=== PATIENT | female | born 1940 | race Caucasian/White ===

== ENCOUNTER 2025-01-11 14:08 | Inpatient (IN) | payer MEDICARE, SELFPAY ==
[2025-01-11 14:09] VITALS: BMI 25.4
[2025-01-11 14:27] VITALS: BP 145/87; PULSE 99; RESP 19; TEMP 36.9; O2SAT 99
--- NOTE | 2025-01-11 14:35 | PD.EDRME ---
Rapid Medical Screening Exam E Arrival date/time: 01/11/25 14:08 84-year-old female presents to the emergency department today patient on the phone with her physician who I spoke with she reports that the patient's urine culture grew Pseudomonas as well as Klebsiella as the patient has a pseudomonal infection she believes patient is to have IV antibiotics. Chief Complaint: Urogenital-Female Vital signs: Vital Signs Temperature 98.4 F 01/11/25 14:27 Pulse Rate 99 01/11/25 14:27 Respiratory Rate 19 01/11/25 14:27 Blood Pressure 145/87 H 01/11/25 14:27 Pulse Oximetry (%) 99 01/11/25 14:27 Oxygen Delivery Method Room Air 01/11/25 14:27
[2025-01-11 15:25] LABS: Basophils # (Auto) 0.0 Thou/mm3 (0.0-0.2); Basophils % (Auto) 1 % (0-2.5); Eosinophils # (Auto) 0.3 Thou/mm3 (0.0-0.5); Eosinophils % (Auto) 4 % (0-10); Hematocrit 41.1 % (36.0-46.0); Hemoglobin 13.5 g/dL (12.0-16.0); Immature Granulocytes Auto 0.01 Thou/mm3 (0.00-0.00); Lymphocytes # (Auto) 1.7 Thou/mm3 (1.0-4.8); Lymphocytes % (Auto) 25 % (10-50); Mean Corpuscular HGB Conc 32.8 g/dl (31.0-37.0); Mean Corpuscular Hemoglobin 27.6 pg (25.0-35.0); Mean Corpuscular Volume 84 fL (80-100); Monocytes # (Auto) 0.7 Thou/mm3 (0.0-0.8); Monocytes % (Auto) 10 % (0-12); Neutrophils # (Auto) 4.0 Thou/mm3 (1.8-7.7); Neutrophils % (Auto) 60 % (37-80); Nucleated Red Blood Cell # 0.00 Thou/mm3 (0.00-0.00); Nucleated Red Blood Cell % 0 /100 WBC (0); Platelet Count 239 Thou/mm3 (140-440); RDW Standard Deviation 41.2 fL (36.4-46.3); Red Blood Count 4.90 Miln/mm3 (4.00-5.20); White Blood Count 6.6 Thou/mm3 (3.6-11.0)
[2025-01-11 15:31] LABS: Collection Type, Urine Clean Catch; RBC,Urine 0 /hpf (0-3)
[2025-01-11 15:46] LABS: Alanine Aminotransferase 11 U/L (10-49); Albumin, Serum 4.4 gm/dL (3.4-4.8); Albumin/Globulin Ratio 1.9 (1.2-2.2); Alkaline Phosphatase 55 U/L (46-116); Anion Gap 12 (7-16); Aspartate Amino Transferase 17 U/L (0-34); BUN/Creatinine Ratio 13 Ratio (12-20); Bilirubin,Total 0.4 mg/dL (0.3-1.2); Blood Urea Nitrogen 14 mg/dL (9-23); Calcium 9.5 mg/dL (8.3-10.6); Calcium (Corrected) 9.5 mg/dL (8.5-10.1); Carbon Dioxide 24.2 mMol/L (20.0-31.0); Chloride 99 mMol/L (98-107); Creatinine (Component) 1.1 mg/dL (0.6-1.3); Estimated Creatinine Clearance 38.6 mL/min (>60); Globulin 2.3 gm/dL (2.3-3.5); Glucose 152 mg/dL (74-106); Osmolality,Calculated 273 (275-295); Potassium 4.0 mMol/L (3.4-5.1); Sodium 135 mMol/L (136-145); Total Protein 6.7 gm/dL (5.7-8.2); eGFR 50 See Note
[2025-01-11 15:54] LABS: Bilirubin,Urine Negative (Negative); Blood,Urine Negative (Negative); Clarity,Urine Turbid (Clear/Hazy); Color,Urine Yellow (Lt Yel-Yel); Glucose, Urine Negative (Negative); Ketones,Urine Negative (Negative); Leukocyte Esterase,Urine Positive (Negative); Nitrite,Urine Positive (Negative); PH,Urine 6.0 (5.0-7.0); Protein,Urine Negative (Neg - Trace); Specific Gravity,Urine 1.016 (1.001-1.035); Squamous Epithelial Cell,Urine < 1 /hpf (0-5); Urobilinogen,Urine Negative mg/dL (0.0-1.0); WBC,Urine 45 /hpf (0-5)
[2025-01-11 15:55] LABS: Culture Indicated,Urine Yes
[2025-01-11 18:15] VITALS: BP 156/87; PULSE 87; RESP 18; TEMP 37.1; O2SAT 99
--- NOTE | 2025-01-11 18:31 | EDNOTE_ITS ---
ED Female Urogenital E/[facility] General Chief complaint: Urogenital-Female Stated complaint: NEED SHOT FOR UTI Time Seen by Provider: 01/11/25 17:17 Arrival date/time: 01/11/25 14:08 E / HPI RME / [facility] Narrative: 84-year-old female presents to the emergency department today patient on the phone with her physician who I spoke with she reports that the patient's urine culture grew Pseudomonas as well as Klebsiella as the patient has a pseudomonal infection she believes patient is to have IV antibiotics. Patient has been having urinary tract infection for more than 3 weeks, already completed 2 rounds of p.o. antibiotic. Last Monday, patient had another urinalysis and still showing UTI. Patient did not bring his culture and sensitivity results. Currently patient is still having urinary frequency and dysuria. No fever no vomiting noted. Related Data Allergies Allergy/AdvReac Type Severity Reaction Status Date / Time Sulfa (Sulfonamide Allergy Verified 01/11/25 14:09 Antibiotics) Review of Systems Review of Systems Narrative Review of Systems: Review of system reviewed and within normal limits except mentioned in HPI ED Exam Narrative Physical exam: VITAL SIGNS: Reviewed. GENERAL APPEARANCE: Alert and interactive, follows commands, no acute distress, HEAD AND FACE: Non-traumatic. ENT: PERRL, pink conjunctivitis, eyelid no trauma, Mucous membrane moist. NECK: Supple, nontender, no nuchal rigidity. CHEST: No tenderness, no crepitus, no paradoxical movement, no retractions. LUNGS: Clear, well ventilated, symmetric, no rales, no wheezing, no ronchi, no stridor, good breath sounds bilaterally. HEART: Regular rate, regular rhythm, no murmur, no gallops. ABDOMEN: Soft, positive bowel sounds, nondistended, no guarding, nontender, no rebound, no masses, RECTAL: Deferred. GENITAL: Deferred. NEUROLOGICAL: Gross motor function intact sensory function intact, Appropriate for age. MUSCULOSKELETAL: low back nontender, full range of motion. EXTREMITIES: Nontender, full range of motion. SKIN: Color pink, dry, no rash, no lacerations, no abrasions, no contusions. LYMPHATICS: Deferred. Course Quality Measures none Orders Category Date Time Status COVID-19 Screening Questionnaire NOW Care 01/11/25 19:56 Active Decision to Admit X1 Care 01/11/25 19:56 Active Blood Culture (Lab) Stat Lab 01/11/25 15:02 Received CBC Stat Lab 01/11/25 15:02 Completed Comprehensive Metabolic Panel Stat Lab 01/11/25 15:02 Completed Lactate (Lactic Acid) Stat Lab 01/11/25 18:41 Completed UA, C/S IF [Urinalysis, C/S if Indicated] Stat Lab 01/11/25 15:18 Completed Urine Culture Stat Lab 01/11/25 15:18 Received Meropenem Inj [Merrem Inj] 1,000 mg Med 01/11/25 18:30 Discontinued SODIUM CHLORIDE 0.9% (Popper) [Ns 0.9% (P)] 50 ml IV X1 Sodium Chloride 0.9% 1000 ml [Ns] 1,000 ml Med 01/11/25 18:30 Discontinued IV 999 mls/hr Vital Signs Vital signs: Vital Signs Temperature 98.4 F 01/11/25 14:27 Pulse Rate 99 01/11/25 14:27 Respiratory Rate 19 01/11/25 14:27 Blood Pressure 145/87 H 01/11/25 14:27 Pulse Oximetry (%) 99 01/11/25 14:27 Oxygen Delivery Method Room Air 01/11/25 14:27 Urogenital - Female MDM Narrative MDM Narrative:: 84-year-old female presents to the emergency department today patient on the phone with her physician who I spoke with she reports that the patient's urine culture grew Pseudomonas as well as Klebsiella as the patient has a pseudomonal infection she believes patient is to have IV antibiotics. Patient has been having urinary tract infection for more than 3 weeks, already completed 2 rounds of p.o. antibiotic. Last Monday, patient had another urinalysis and still showing UTI. Patient did not bring his culture and sensitivity results. Currently patient is still having urinary frequency and dysuria. No fever no vomiting noted. Patient's laboratory workup was significant for UTI no leukocytosis noted lactic acid is normal patient is to be admitted for IV antibiotic treatment since no p.o. antibiotic is susceptible to the patient's current UTI. Patient already finished 2 rounds of unrecalled p.o. antibiotic. Patient data External records reviewed:: None Clinical information provided by:: patient Social determinants that could affect healthcare access:: none Patient has the following chronic illnesses:: None How is presenting disease/condition affected by chronic disease/condition?: no chronic disease Evaluation data The following diagnostics were reviewed and interpreted by me:: lab results Lab and/or radiology exams considered but not ordered:: None Interpretation Summary: None Medications / Prescriptions Medications or Prescriptions considered but not ordered:: None Medication administrations:: Medication Administration History Discontinued Medications Meropenem 1,000 mg/ Sodium (Chloride) 50 mls @ 100 mls/hr IV X1 ONE Stop: 01/11/25 18:31 Last Infusion: 01/11/25 20:22 Dose: Infused Documented By: Admin: 01/11/25 19:52 Dose: 100 mls/hr Documented By: LAURA Sodium Chloride (Ns) 1,000 mls @ 999 mls/hr IV .Q1H1M ONE Stop: 01/11/25 19:30 Last Admin: 01/11/25 19:52 Dose: 999 mls/hr Documented By: LAURA IV fluids, meropenem Consultations Consultation(s) initiated? (list below): No Diagnosis Urogenital Female Differential Diagnosis: urinary tract infection and cystitis Most likely diagnosis given after review of the tests above:: UTI, resistant to p.o. antibiotics Admission Indicated Admission indicated?: indicated Admission Request Was there a request for admission?: Yes Admission Attestation Admission request attestation: Discussed case with [Dr. Sage] from Hospitalist service regarding admission. Discussed patients ED course, exam findings, labs, and radiology results. The Hospitalist [agrees to accept the patient for admission. Disposition Plan Disposition Plan: Admit Discharge Plan Plan Patient Disposition: Admit Acute Care w/in Hospital Prescriptions/Referrals Referrals: No Primary/Family,Physician [Primary Care Provider] - In 1 week Problem List Clinical Impression: Urinary tract infection Patient/Caregiver Discharge Instructions Print Language: Kazakh Stand Alone Forms: Jeanne Award Info., Patient Portal Info Letter
[2025-01-11 19:10] LABS: Lactate (Lactic Acid) 1.4 mMol/L (0.4-2.0)
[2025-01-11] MEDS: MEROPENEM INJ 1,000 MG in SODIUM CHLORIDE 0.9% (Popper) 50 ML 100 MG IV (19:52)
[2025-01-11] MEDS: SODIUM CHLORIDE 0.9% 1000 ML 1,000 ML 999 ML IV (19:52)
[2025-01-11 20:45] VITALS: BP 144/82; PULSE 76; RESP 18; TEMP 36.6; O2SAT 100
--- NOTE | 2025-01-11 22:18 | ESHP_ITS ---
Documentation for date of: 01/11/25 HPI History of Present Illness Chief complaint: UTI with failure of outpatient therapy History of present illness: 84 y/o F with PMHx significant for hypertension presented with chief complaint of persistent UTI and failure of outpatient therapy. Per patient she has had symptoms of dysuria and urinary urgency for 3 weeks, attempted 2 rounds of antibiotics: 1 week of Augmentin, followed by 1 week of Keflex. Symptoms persisted despite this. Per ED, patient's urine culture from PCP was growing Klebsiella and Pseudomonas, unknown sensitivities. ED started the patient on meropenem. Patient [place] fever, chills, nausea, vomiting, abdominal pain, flank pain. ED COURSE: Labs significant for: WBC 6.6, lactic acid negative. Urinalysis showed nitrate positive, 45 WBCs. Blood and urine cultures pending. Imaging significant for: None performed. Patient received 1 L bolus normal saline and 1 g meropenem in the ED. PMH: Hypertension PSH: Cholecystectomy. SH: Denies tobacco or illicit drug use. Reports 1 glass of wine nightly. Allergies:?Sulfa drugs Medications: Lisinopril 10, hydrochlorothiazide 25 Review of Systems Review of Systems Systems Reviewed: All systems reviewed, normal except as documented Past Medical History Past Medical History Comments PMH COMMENT: PMH: Hypertension PSH: Cholecystectomy. SH: Denies tobacco or illicit drug use. Reports 1 glass of wine nightly. Allergies:?Sulfa drugs Medications: Lisinopril 10, hydrochlorothiazide 25 Exam Vital Signs Temp Pulse Resp BP Pulse Ox O2 Del Method 97.9 F 76 18 144/82 H 100 Room Air 01/11/25 20:45 01/11/25 20:45 01/11/25 20:45 01/11/25 20:45 01/11/25 20:45 01/11/25 20:45 Narrative Exam PE: Gen: Well-developed and well-nourished. HEENT: NCAT, PERRLA, EOMI, MMM, anicteric conjunctivae. CVS: normal S1 and S2. RRR. No M/R/G. Resp: CTA B/L. No rhonchi, rales, crackles or wheezing. Abd: soft, non-distended. BS+ in all 4 quadrants. Mild suprapubic tenderness. MSK: Good ROM in BUE & BLE. No rash. 2+ pitting edema, normal for patient. Neuro: CN II-XII grossly intact. Strength 5/5 in BUE & BLE. Alert and oriented x3. Psych: appropriate mood and affect. Results: Labs 01/11/25 15:02 01/11/25 15:02 Labs: Short CBC 01/11/25 Range/Units 15:02 WBC 6.6 (3.6-11.0) Thou/mm3 Hgb 13.5 (12.0-16.0) g/dL Hct 41.1 (36.0-46.0) % Plt Count 239 (140-440) Thou/mm3 BMP 01/11/25 15:02 Sodium 135 L Potassium 4.0 Chloride 99 Carbon Dioxide 24.2 BUN 14 Creatinine 1.1 Glucose 152 H Calcium 9.5 Liver Function 01/11/25 Range/Units 15:02 Total Bilirubin 0.4 (0.3-1.2) mg/dL AST 17 (0-34) U/L ALT 11 (10-49) U/L Alkaline Phosphatase 55 (46-116) U/L Albumin 4.4 (3.4-4.8) gm/dL Urine 01/11/25 Range/Units 15:18 Urine Color Yellow (Lt Yel-Yel) Urine Clarity Turbid A (Clear/Hazy) Urine pH 6.0 (5.0-7.0) Ur Specific [place] 1.016 (1.001-1.035) Urine Protein Negative (Neg - Trace) Urine Glucose (UA) Negative (Negative) Quality Measures Quality Measures VTE prophylaxis Advance care planning discussed with:: patient Medications Home Medications and Allergies Allergies Allergy/AdvReac Type Severity Reaction Status Date / Time Sulfa (Sulfonamide Allergy Verified 01/11/25 14:09 Antibiotics) Visit Medications Acetaminophen (Acetaminophen 325 Mg Tablet) 650 mg PO Q6H PRN PRN Reason: Fever >100.4 or pain Stop: 02/10/25 21:24 Docusate Sodium (Docusate Sod 100 Mg Capsule) 100 mg PO QDAY PRN; Protocol PRN Reason: CONSTIPATION Stop: 02/10/25 21:24 Enoxaparin Sodium (Enoxaparin Sod Inj 40 Mg/0.4 Ml Syringe) 40 mg SC QDAY SHON Stop: 01/26/25 08:59 Meropenem 1,000 mg/ Sodium (Chloride) 50 mls @ 100 mls/hr IV Q8HR SHON Stop: 01/18/25 21:28 Lisinopril (Lisinopril 2.5 Mg Tablet) 10 mg PO QDAY SHON Stop: 02/11/25 08:59 Ondansetron HCl (Ondansetron Inj 2 Mg/Ml Inj 2 Ml) 4 mg IVP Q6H PRN; Protocol PRN Reason: NAUSEA OR VOMITING Stop: 02/10/25 21:24 Sennosides (Senna Tablet) 1 tab PO QDAY PRN; Protocol PRN Reason: constipation Stop: 02/10/25 21:24 Discontinued Medications Meropenem 1,000 mg/ Sodium (Chloride) 50 mls @ 100 mls/hr IV X1 ONE Stop: 01/11/25 18:31 Last Infusion: 01/11/25 20:22 Dose: Infused Sodium Chloride (Ns) 1,000 mls @ 999 mls/hr IV .Q1H1M ONE Stop: 01/11/25 19:30 Last Infusion: 01/11/25 20:53 Dose: Infused Assessment & Plan Plan 84 y/o F with PMHx significant for hypertension presented with chief complaint of persistent UTI and failure of outpatient therapy, admitted for UTI requiring IV antibiotics. #UTI with failure of outpatient antibiotics Patient has had symptoms of UTI for 3 weeks, dysuria and urinary urgency. Completed a course of Keflex and a course of Augmentin without relief. Per ED, outpatient urine culture grew Klebsiella and Pseudomonas. Sensitivities unknown, however ED started patient on meropenem, possible ESBL. - Urine and blood cultures pending, follow-up - Meropenem 1 g IV every 8 hour (started 01/11) - Encourage oral hydration #Hypertension Patient history as stated, on home medication. - Resume home lisinopril 10 mg p.o. daily - Consider resuming home hydrochlorothiazide 25 mg p.o. daily DVT prophylaxis: Lovenox GI prophylaxis: None Diet: Regular Lines: PIV Code status: DNI Plan of care discussed with attending Dr. Palafox. Epifanio Parker MD PGY-2 Attending Provider Attestation/Addendum I attest that I was physically present for the evaluation, physical examination, lab and imaging review of the patient with the residents. I discussed the case with the residents and agree with the findings and plans of care as documented above. After examination of the patient and review of the clinical data I feel that this patient needs admission to the hospital for further treatment/evaluation. Patient is an 84 years old female with past medical history of hypertension who presented to the ED with complaint of persistent urinary frequency and urgency. Patient has already completed 2 courses of oral antibiotics outpatient despite which her symptoms has not completely resolved. ED had contacted patient's PCP who is stated that the urine grew Klebsiella and Pseudomonas. Patient was started on meropenem by the ED. In the ED, initial vitals were stable except for mild hypertension WBC was within normal limits. Urinalysis showed turbid urine with 45 WBCs, positive nitrite and leukocyte esterase. Blood and urine cultures were obtained. We will admit the patient for management of UTI with outpatient treatment failure. We will continue with IV meropenem, unclear outpatient sensitivity on Klebsiella and Pseudomonas, possibly ESBL. Resume her home lisinopril for hypertension. Mitch Palafox MD
[2025-01-11 22:25] VITALS: BMI 25.4
--- NOTE | 2025-01-11 22:25 | PC.NURSE ---
pt received in room 362. pt is alert and oriented x4, no complaints at this time.
--- NOTE | 2025-01-11 22:40 | PC.NURSE ---
per pt, will bring medications in the AM 01/11/25 to complete med rec.
[2025-01-12] VITALS (7 sets, daily range): BP systolic 118–134; BP diastolic 54–75; PULSE 60–89; RESP 17–20; TEMP 36.1–36.4; O2SAT 92–95
[2025-01-12 06:24] LABS: Basophils # (Auto) 0.0 Thou/mm3 (0.0-0.2); Basophils % (Auto) 1 % (0-2.5); Eosinophils # (Auto) 0.3 Thou/mm3 (0.0-0.5); Eosinophils % (Auto) 4 % (0-10); Hematocrit 37.3 % (36.0-46.0); Hemoglobin 12.4 g/dL (12.0-16.0); Immature Granulocytes Auto 0.02 Thou/mm3 (0.00-0.00); Lymphocytes # (Auto) 1.7 Thou/mm3 (1.0-4.8); Lymphocytes % (Auto) 24 % (10-50); Mean Corpuscular HGB Conc 33.2 g/dl (31.0-37.0); Mean Corpuscular Hemoglobin 27.7 pg (25.0-35.0); Mean Corpuscular Volume 83 fL (80-100); Monocytes # (Auto) 0.9 Thou/mm3 (0.0-0.8); Monocytes % (Auto) 12 % (0-12); Neutrophils # (Auto) 4.2 Thou/mm3 (1.8-7.7); Neutrophils % (Auto) 60 % (37-80); Nucleated Red Blood Cell # 0.00 Thou/mm3 (0.00-0.00); Nucleated Red Blood Cell % 0 /100 WBC (0); Platelet Count 211 Thou/mm3 (140-440); RDW Standard Deviation 40.6 fL (36.4-46.3); Red Blood Count 4.47 Miln/mm3 (4.00-5.20); White Blood Count 7.1 Thou/mm3 (3.6-11.0)
[2025-01-12 07:04] LABS: Anion Gap 11 (7-16); BUN/Creatinine Ratio 13 Ratio (12-20); Blood Urea Nitrogen 12 mg/dL (9-23); Calcium 8.8 mg/dL (8.3-10.6); Carbon Dioxide 22.7 mMol/L (20.0-31.0); Cardiac Risk Estimate 3.8 RATIO (3.7-5.6); Chloride 106 mMol/L (98-107); Cholesterol 213 mg/dL (132-200); Creatinine (Component) 0.9 mg/dL (0.6-1.3); Estimated Creatinine Clearance 47.2 mL/min (>60); Glucose 83 mg/dL (74-106); HDL Cholesterol 56 mg/dL (40-60); LDL Cholesterol,Calculated 139 mg/dL (0-130); Magnesium 1.6 mg/dL (1.6-2.6); Osmolality,Calculated 278 (275-295); Phosphorous 2.8 mg/dL (2.4-5.1); Potassium 4.2 mMol/L (3.4-5.1); Sodium 140 mMol/L (136-145); Triglycerides 92 mg/dL (30-150); eGFR > 60 See Note
[2025-01-12] MEDS: MEROPENEM INJ 1,000 MG in SODIUM CHLORIDE 0.9% (Popper) 50 ML 100 MG IV ×2 (09:14→20:17)
[2025-01-12] MEDS: ENOXAPARIN SOD INJ 40 MG/0.4 ML SYRINGE SC (09:14)
--- NOTE | 2025-01-12 09:53 | ESPR_ITS ---
<Statement entered by Damian Read MD - 01/13/25 16:54> Patient was examined and case was reviewed with team including attending physician. Note reviewed, I agree with most of its contents and agree with the patient's care as documented by Dr. Wolfe Patient seen today at the bedside found awake, alert, orientedx3. No overnight events reported. Vital signs stable at this time. Currently on Meropenen. ID was consulted will await further reccs. Damian Read MD PGY-2 Documentation for date of: 01/12/25 Subjective Subjective Interval history: Patient reports that she continues to have urgency, burning with micturition has resolved, decreased urinary frequency since starting meropenem. Reports 1 BM this AM, patient is ambulatory and is able to walk to the bathroom on her own. She denies abdominal pain, constipation. Patient failed outpatient therapy with Augmentin x1 week, Keflex x1 week. Before this, her last UTI was >2 years ago. Exam Vital Signs Temp Pulse Resp BP Pulse Ox O2 Del Method 97.2 F 71 18 134/64 H 94 L Room Air 01/12/25 07:55 01/12/25 09:14 01/12/25 07:55 01/12/25 09:14 01/12/25 07:55 01/12/25 07:55 Narrative Exam General: No acute distress, well nourished Eye: PERRL, EOMI, normal conjunctiva, no scleral icterus HENT: Normocephalic, atraumatic, normal hearing, moist oral mucosa Neck: Supple, non-tender, no JVD, no lymphadenopathy Lungs: Clear to auscultation bilaterally, non-labored respirations, symmetric chest rise, no use of accessory muscles Heart: Normal S1 and S2, no S3 or S4 appreciated. Normal rate and regular rhythm, no murmurs, rubs gallops, or edema. Peripheral pulses intact bilaterally, capillary refill brisk distally Abdomen: Soft, non-tender, non-distended, normal bowel sounds. No guarding or rebound tenderness. Musculoskeletal: Normal range of motion and strength, no tenderness or swelling Skin: Skin is warm, dry, no rashes or lesions. Neurologic: Alert, awake and oriented x3. CN II-XII grossly intact. No focal neuro deficits. No signs of meningeal irritation noted. Psychiatric: Cooperative, appropriate mood and affect Objective Labs 01/13/25 05:04 01/13/25 05:04 Labs: Laboratory Results - last 24 hr 01/11/25 01/11/25 01/11/25 15:02 15:18 18:41 WBC 6.6 RBC 4.90 Hgb 13.5 Hct 41.1 MCV 84 MCH 27.6 MCHC 32.8 RDW Std Deviation 41.2 Plt Count 239 Neut % (Auto) 60 Lymph % (Auto) 25 [place] % (Auto) 10 Eos % (Auto) 4 Baso % (Auto) 1 Neut # (Auto) 4.0 Lymph # (Auto) 1.7 [place] # (Auto) 0.7 Eos # (Auto) 0.3 Baso # (Auto) 0.0 Immature Gran # (Auto) 0.01 H Absolute Nucleated RBC 0.00 Immature Gran % 0 Nucleated RBC % 0 Sodium 135 L Potassium 4.0 Chloride 99 Carbon Dioxide 24.2 Anion Gap 12 BUN 14 Creatinine 1.1 Estim Creat Clear Calc 38.6 L eGFR 50 L BUN/Creatinine Ratio 13 Glucose 152 H Calculated Osmolality 273 L Lactic Acid 1.4 Calcium 9.5 Corrected Calcium 9.5 Phosphorus Magnesium Total Bilirubin 0.4 AST 17 ALT 11 Alkaline Phosphatase 55 Total Protein 6.7 Albumin 4.4 Globulin 2.3 Albumin/Globulin Ratio 1.9 Triglycerides Cholesterol LDL Cholesterol, Calc HDL Cholesterol Cholesterol/HDL Ratio Ur Collection Type Clean Catch Urine Color Yellow Urine Clarity Turbid A Urine pH 6.0 Ur Specific [place] 1.016 Urine Protein Negative Urine Glucose (UA) Negative Urine Ketones Negative Urine Blood Negative Urine Nitrite Positive Urine Bilirubin Negative Urine Urobilinogen (Auto) Negative Ur Leukocyte Esterase Positive Urine RBC 0 Urine WBC 45 H Ur Squamous Epith Cells < 1 Urine Bacteria None Ur Culture Indicated? Yes 01/12/25 04:25 WBC 7.1 RBC 4.47 Hgb 12.4 Hct 37.3 MCV 83 MCH 27.7 MCHC 33.2 RDW Std Deviation 40.6 Plt Count 211 Neut % (Auto) 60 Lymph % (Auto) 24 [place] % (Auto) 12 Eos % (Auto) 4 Baso % (Auto) 1 Neut # (Auto) 4.2 Lymph # (Auto) 1.7 [place] # (Auto) 0.9 H Eos # (Auto) 0.3 Baso # (Auto) 0.0 Immature Gran # (Auto) 0.02 H Absolute Nucleated RBC 0.00 Immature Gran % 0 Nucleated RBC % 0 Sodium 140 Potassium 4.2 Chloride 106 Carbon Dioxide 22.7 Anion Gap 11 BUN 12 Creatinine 0.9 Estim Creat Clear Calc 47.2 L eGFR > 60 BUN/Creatinine Ratio 13 Glucose 83 D Calculated Osmolality 278 Lactic Acid Calcium 8.8 Corrected Calcium Phosphorus 2.8 Magnesium 1.6 Total Bilirubin AST ALT Alkaline Phosphatase Total Protein Albumin Globulin Albumin/Globulin Ratio Triglycerides 92 Cholesterol 213 H LDL Cholesterol, Calc 139 H HDL Cholesterol 56 Cholesterol/HDL Ratio 3.8 Ur Collection Type Urine Color Urine Clarity Urine pH Ur Specific [place] Urine Protein Urine Glucose (UA) Urine Ketones Urine Blood Urine Nitrite Urine Bilirubin Urine Urobilinogen (Auto) Ur Leukocyte Esterase Urine RBC Urine WBC Ur Squamous Epith Cells Urine Bacteria Ur Culture Indicated? Quality Measures Quality Measures VTE prophylaxis Advance care planning discussed with:: patient Assessment & Plan Assessment Current Active Medications: Generic Name Dose Route Start Last Admin Trade Name Freq PRN Reason Stop Dose Admin Acetaminophen 650 mg 01/11/25 21:25 Acetaminophen 325 Mg Tablet PO 02/10/25 21:24 Q6H PRN Fever >100.4 or pain Docusate Sodium 100 mg 01/11/25 21:25 Docusate Sod 100 Mg Capsule PO 02/10/25 21:24 QDAY PRN CONSTIPATION Protocol Enoxaparin Sodium 40 mg 01/12/25 09:00 01/12/25 09:14 Enoxaparin Sod Inj 40 Mg/0.4 Ml Syringe SC 01/26/25 08:59 40 mg QDAY SHON Administration Meropenem 1,000 mg/ Sodium 50 mls @ 100 mls/hr 01/12/25 09:00 01/12/25 09:14 Chloride IV 01/19/25 08:59 100 mls/hr Q12HR SHON Administration Lisinopril 10 mg 01/12/25 09:00 01/12/25 09:14 Lisinopril 2.5 Mg Tablet PO 02/11/25 08:59 10 mg QDAY SHON Administration Ondansetron HCl 4 mg 01/11/25 21:25 Ondansetron Inj 2 Mg/Ml Inj 2 Ml IVP 02/10/25 21:24 Q6H PRN NAUSEA OR VOMITING Protocol Sennosides 1 tab 01/11/25 21:25 Senna Tablet PO 02/10/25 21:24 QDAY PRN constipation Protocol Plan 84 y/o F with PMHx significant for hypertension presented with chief complaint of persistent UTI and failure of outpatient therapy, admitted for UTI requiring IV antibiotics. #UTI with failure of outpatient antibiotics Patient has had symptoms of UTI for 3 weeks, dysuria and urinary urgency. Completed a course of Keflex x1 wk and a course of Augmentin x 1wk without relief. Per ED, outpatient urine culture grew Klebsiella and Pseudomonas. Sensitivities unknown, however ED started patient on meropenem, possible ESBL. Plan: - Pending urine and blood cultures - Meropenem 1 g IV every 8 hour (01/11-01/19) - Phenazopyridine TID PRN - Encourage oral hydration #Hypertension Home meds: Lisinopril 10 mg PO daily, HCTZ 25 mg PO daily BP appropriate today Plan: - Continue lisinopril 10 mg PO daily - Will continue to monitor BP. If BP elevated, will also restart home HCTZ DVT prophylaxis: Lovenox GI prophylaxis: None Diet: Regular Bowel reg: Docusate, senna Code status: DNI Plan discussed wt Dr. Willson and Dr. Vangie Wolfe MD PGY1 Attending Provider Attestation/Addendum I, Suri Vences DO, attest that I was physically present for the [place] portions of the service and evaluated the patient with the resident and I reviewed and discussed the case with the resident and agree with the resident's findings and plans of care as documented above Patient seen and eval this a.m. No acute events overnight. Patient denies any active suprapubic pain or flank pain. No CVA tenderness on exam. Patient states that the dysuria has improved ever since she had been started on meropenem. She was called by her PCP Dr. Steele to come to the ED due to her cultures and having failed 2 different p.o. antibiotics. She is otherwise afebrile. She does endorse having dysuria and frequent urination. However, she endorses having improved symptoms at this time since she has been admitted.
[2025-01-12] MEDS: PHENAZOPYRIDINE HCL 100 MG TABLET PO (11:43)
[2025-01-13] VITALS (8 sets, daily range): BP systolic 115–145; BP diastolic 60–91; PULSE 70–89; RESP 17–18; TEMP 36.1–36.3; O2SAT 94–97
[2025-01-13 06:46] LABS: Basophils # (Auto) 0.1 Thou/mm3 (0.0-0.2); Basophils % (Auto) 1 % (0-2.5); Eosinophils # (Auto) 0.2 Thou/mm3 (0.0-0.5); Eosinophils % (Auto) 2 % (0-10); Hematocrit 39.8 % (36.0-46.0); Hemoglobin 13.1 g/dL (12.0-16.0); Immature Granulocytes Auto 0.02 Thou/mm3 (0.00-0.00); Lymphocytes # (Auto) 1.7 Thou/mm3 (1.0-4.8); Lymphocytes % (Auto) 18 % (10-50); Mean Corpuscular HGB Conc 32.9 g/dl (31.0-37.0); Mean Corpuscular Hemoglobin 27.5 pg (25.0-35.0); Mean Corpuscular Volume 83 fL (80-100); Monocytes # (Auto) 1.0 Thou/mm3 (0.0-0.8); Monocytes % (Auto) 11 % (0-12); Neutrophils # (Auto) 6.2 Thou/mm3 (1.8-7.7); Neutrophils % (Auto) 67 % (37-80); Nucleated Red Blood Cell # 0.00 Thou/mm3 (0.00-0.00); Nucleated Red Blood Cell % 0 /100 WBC (0); Platelet Count 235 Thou/mm3 (140-440); RDW Standard Deviation 40.7 fL (36.4-46.3); Red Blood Count 4.77 Miln/mm3 (4.00-5.20); White Blood Count 9.1 Thou/mm3 (3.6-11.0)
[2025-01-13 06:57] LABS: Anion Gap 11 (7-16); BUN/Creatinine Ratio 14 Ratio (12-20); Blood Urea Nitrogen 13 mg/dL (9-23); Calcium 8.7 mg/dL (8.3-10.6); Carbon Dioxide 23.5 mMol/L (20.0-31.0); Chloride 105 mMol/L (98-107); Creatinine (Component) 0.9 mg/dL (0.6-1.3); Estimated Creatinine Clearance 47.2 mL/min (>60); Glucose 93 mg/dL (74-106); Magnesium 1.6 mg/dL (1.6-2.6); Osmolality,Calculated 277 (275-295); Phosphorous 2.3 mg/dL (2.4-5.1); Potassium 3.8 mMol/L (3.4-5.1); Sodium 139 mMol/L (136-145); eGFR > 60 See Note
--- NOTE | 2025-01-13 08:11 | ESPR_ITS ---
<Statement entered by Damian Read MD - 01/13/25 16:56> Patient was examined and case was reviewed with team including attending physician. Note reviewed, I agree with most of its contents and agree with the patient's care as documented by MS Tejinder Gottlieb Patient seen today at the bedside found awake, alert, orientedx3. No overnight events reported. Vital signs stable at this time. ID was consulted switched Abx regimen to Rocephin will continue to await culture results. Clinically patient is overall improving. Will follow up am labs. Damian Read MD PGY-2 Documentation for date of: 01/13/25 Subjective Subjective Interval history: pt evaluated at bedside today. Pt is alert and oriented x4. Pt reports that she is feeling much better. She used the bathroom this morning and no longer felt any burning with urination. She reports decreased urinary frequency and reduced urgency since starting the meropenem. Per Infectious Disease recommendations, Meropenem was substituted with IV Ceftriaxone 1gm in 50ml at a rate of 100 ml/hr. Pt was updated about the plan and reports that she does not have any further concerns or questions at this time. Exam Vital Signs Temp Pulse Resp BP Pulse Ox O2 Del Method 97.1 F 70 17 139/70 H 95 Room Air 01/13/25 04:00 01/13/25 04:00 01/13/25 04:00 01/13/25 04:00 01/13/25 04:00 01/13/25 04:00 Narrative Exam General: No acute distress, well nourished Eye: PERRL, EOMI, normal conjunctiva, no scleral icterus HENT: Normocephalic, atraumatic, normal hearing, moist oral mucosa Neck: Supple, non-tender, no JVD, no lymphadenopathy Lungs: Clear to auscultation bilaterally, non-labored respirations, symmetric chest rise, no use of accessory muscles Heart: Normal S1 and S2, no S3 or S4 appreciated. Normal rate and regular rhythm, no murmurs, rubs gallops, or edema. Peripheral pulses intact bilaterally, capillary refill brisk distally Abdomen: Soft, non-tender, non-distended, normal bowel sounds. No guarding or rebound tenderness. Musculoskeletal: Normal range of motion and strength, no tenderness or swelling Skin: Skin is warm, dry, no rashes or lesions. Neurologic: Alert, awake and oriented x3. CN II-XII grossly intact. No focal neuro deficits. No signs of meningeal irritation noted. Psychiatric: Cooperative, appropriate mood and affect Objective Objective Narrative Objective Narrative: Pt was evaluated at bedside today. Vital signs steady and stable.pt is alert and oriented times 4. Pt has clear breath sounds bilaterally and cardiac exam yields regular rate and rhythm without murmur. Abdomen is soft and nontender. There is no CVA tenderness noted. Pt does not have evidence of pitting edema in the bilateral LE. Labs 01/14/25 06:06 01/14/25 06:06 Labs: Laboratory Results - last 24 hr 01/13/25 05:04 WBC 9.1 RBC 4.77 Hgb 13.1 Hct 39.8 MCV 83 MCH 27.5 MCHC 32.9 RDW Std Deviation 40.7 Plt Count 235 Neut % (Auto) 67 Lymph % (Auto) 18 [place] % (Auto) 11 Eos % (Auto) 2 Baso % (Auto) 1 Neut # (Auto) 6.2 Lymph # (Auto) 1.7 [place] # (Auto) 1.0 H Eos # (Auto) 0.2 Baso # (Auto) 0.1 Immature Gran # (Auto) 0.02 H Absolute Nucleated RBC 0.00 Immature Gran % 0 Nucleated RBC % 0 Sodium 139 Potassium 3.8 Chloride 105 Carbon Dioxide 23.5 Anion Gap 11 BUN 13 Creatinine 0.9 Estim Creat Clear Calc 47.2 L eGFR > 60 BUN/Creatinine Ratio 14 Glucose 93 Calculated Osmolality 277 Calcium 8.7 Phosphorus 2.3 L Magnesium 1.6 Quality Measures Quality Measures VTE prophylaxis Advance care planning discussed with:: patient Assessment & Plan Assessment Current Active Medications: Generic Name Dose Route Start Last Admin Trade Name Freq PRN Reason Stop Dose Admin Acetaminophen 650 mg 01/11/25 21:25 Acetaminophen 325 Mg Tablet PO 02/10/25 21:24 Q6H PRN Fever >100.4 or pain Docusate Sodium 100 mg 01/11/25 21:25 Docusate Sod 100 Mg Capsule PO 02/10/25 21:24 QDAY PRN CONSTIPATION Protocol Enoxaparin Sodium 40 mg 01/12/25 09:00 01/12/25 09:14 Enoxaparin Sod Inj 40 Mg/0.4 Ml Syringe SC 01/26/25 08:59 40 mg QDAY SHON Administration Meropenem 1,000 mg/ Sodium 50 mls @ 100 mls/hr 01/12/25 09:00 01/12/25 20:17 Chloride IV 01/19/25 08:59 100 mls/hr Q12HR SHON Administration Lisinopril 10 mg 01/12/25 09:00 01/12/25 09:14 Lisinopril 2.5 Mg Tablet PO 02/11/25 08:59 10 mg QDAY SHON Administration Ondansetron HCl 4 mg 01/11/25 21:25 Ondansetron Inj 2 Mg/Ml Inj 2 Ml IVP 02/10/25 21:24 Q6H PRN NAUSEA OR VOMITING Protocol Phenazopyridine HCl 100 mg 01/12/25 16:44 Phenazopyridine Hcl 100 Mg Tablet PO 01/14/25 16:43 TIDWM PRN dysuria Sennosides 1 tab 01/11/25 21:25 Senna Tablet PO 02/10/25 21:24 QDAY PRN constipation Protocol Plan #UTI with failure of outpatient antibiotics Patient has had symptoms of UTI for 3 weeks, dysuria and urinary urgency. Completed a course of Keflex x1 wk and a course of Augmentin x 1wk without relief. Per ED, outpatient urine culture grew Klebsiella and Pseudomonas. Sensitivities unknown, however ED started patient on meropenem, possible ESBL. Pt's PCP will be contacted to obtain results of previous urine culture and sensitivities to determine current antibiotic course. - Pending urine culture. Blood culture shows no growth at 24 hours x2 - Meropenem 1 g IV every 8 hour (01/11-01/13) - Rocephin 1g IV QDAY (01/13- ) - Encourage oral hydration #Hypertension BP appropriate today Plan: - Continue lisinopril 10 mg PO daily - Will continue to monitor BP. If BP elevated, will also restart home HCTZ Plan was reviewed by Senior Resident Dr. Demetris Read and Attending Physician Dr. Vences Attending Provider Attestation/Addendum I, Suri Vencse, DO, attest that I was physically present for the malagon portions of the service and evaluated the patient with the resident and I reviewed and discussed the case with the resident and agree with the resident's findings and plans of care as documented above Patient seen eval this a.m. She states that she is feeling well. No suprapubic pain or fevers. Patient states that dysuria has much improved. ID following due to meropenem. Switched to ceftriaxone. Pending final cultures and sensitivities. Multiple attempts made to call Dr. Steele's office without any response from office to obtain culture results. Patient takes HCTZ at home. Will hold at this time as she had endorsed having urinary frequency attributing to her UTI symptoms as well. Blood pressure otherwise normotensive.
[2025-01-13] MEDS: cefTRIAXone/D5w 1gm IV premix 1 GM/50 ML BAG IV (09:10)
--- NOTE | 2025-01-13 09:13 | PD.IDPROG ---
Subjective Subjective Interval history: asked to see with merrem ordered. no urine from primary noted. ua not that striking. no renal imaging noted Exam Vital Signs Temp Pulse Resp BP Pulse Ox O2 Del Method 97.1 F 76 18 115/60 94 L Room Air 01/13/25 08:00 01/13/25 09:11 01/13/25 08:00 01/13/25 09:11 01/13/25 08:00 01/13/25 08:00 Narrative Exam exam benign. cx pending. Objective - Internal Medicine Labs 01/13/25 05:04 01/13/25 05:04 Labs: Laboratory Results - last 24 hr 01/13/25 05:04 WBC 9.1 RBC 4.77 Hgb 13.1 Hct 39.8 MCV 83 MCH 27.5 MCHC 32.9 RDW Std Deviation 40.7 Plt Count 235 Neut % (Auto) 67 Lymph % (Auto) 18 [place] % (Auto) 11 Eos % (Auto) 2 Baso % (Auto) 1 Neut # (Auto) 6.2 Lymph # (Auto) 1.7 [place] # (Auto) 1.0 H Eos # (Auto) 0.2 Baso # (Auto) 0.1 Immature Gran # (Auto) 0.02 H Absolute Nucleated RBC 0.00 Immature Gran % 0 Nucleated RBC % 0 Sodium 139 Potassium 3.8 Chloride 105 Carbon Dioxide 23.5 Anion Gap 11 BUN 13 Creatinine 0.9 Estim Creat Clear Calc 47.2 L eGFR > 60 BUN/Creatinine Ratio 14 Glucose 93 Calculated Osmolality 277 Calcium 8.7 Phosphorus 2.3 L Magnesium 1.6 Assessment & Plan A&P Narrative uti. no data [place] [facility] [place] hx of htn on rx narrowed to rocephin. if cx neg, ok to try single dose of fosfomycin 3 gm x1, if pseudomonas, then await s report I will see again wed if still here. Time Spent With Patient Time: Total time spent is greater than 50% in coordination of care (as documented) at patient's floor/unit and/or counseling patient:
--- NOTE | 2025-01-13 09:14 | XR_ITS ---
Examination: Retroperitoneal ultrasound, complete Technique: Multiple high resolution grayscale images of the retroperitoneum obtained, including kidneys and bladder. Exam date and time:January 13, 2025 1219 hours INDICATIONS: Painful urination beginning 3 weeks ago FINDINGS: Right kidney 9.2 cm cortex 1.3 cm Left kidney 9.8 cm cortex 1.4 cm Mild renal parenchymal scar formation No bladder mass or bladder calculi Bladder volume 270 cc IMPRESSION: Small kidneys with bilateral renal cortical thinning Mild bilateral renal parenchymal scar formation. No hydronephrosis
[2025-01-13] MEDS: NAPH,KPH MBDB 1 PACKET (1.5 GM) PO (11:19)
[2025-01-13] MEDS: POT PHOS 15 mMol in NS 250 ML 15 MMOL/250 ML BAG 62.5 MMOL IV (11:19)
--- NOTE | 2025-01-13 11:58 | ESCONSULT_ITS ---
RE: KARRIE HAGEN : 1940 DATE OF CONSULTATION: 01/13/2025 REFERRING PHYSICIAN: Dr. Palafox. REASON FOR CONSULTATION: Presumed resistant organism in the urine in an 84-year-old. HISTORY OF PRESENT ILLNESS: The patient is an 84-year-old non-sexually active woman. Her apparently has idiopathic pulmonary fibrosis and they are not very active sexually. She has not had any sexual contact for quite some time. She has had recurrent UTIs. She has not had any imaging. No history of stones. PAST MEDICAL HISTORY: She has hypertension noted. Denies other health problems. MEDICATIONS AT HOME: Include only hydrochlorothiazide and lisinopril. PAST SURGICAL HISTORY: Includes only a prior cholecystectomy. ALLERGIES: TO SULFA. IMMUNIZATIONS: Last tetanus is not known. She does takes flu shot every year. She has had two COVID vaccines and has had a pneumococcal vaccination. FAMILY HISTORY: Unremarkable. SOCIAL HISTORY: She follows with a [facility] doc , but lives in [place]. Before that, she lived in [place]. Before that, they had traveled extensively in their motor home for about 10 years. She believes they saw 50 states, but she does not remember when and believes that they may have gone through [place] to get to [place]. He cannot drive to [place], so she would have to fly there. It does sound like she may have had some mild cystitis because she never had any back pain, nausea, vomiting, or other systemic symptoms that are described. She has had no fevers. Dr. Palafox put her on meropenem presumably because they did the ED, but there is really no need for that. She has been afebrile. Her pain is better. RECOMMENDATIONS: I went ahead and change her to Rocephin and cultures are negative. If Pseudomonas is present, then wait for the sensitivity report. I will see her again Monday if she is still here. I will get some imaging of her kidneys as well to make sure there are no stones or obstruction. She appears to be healthy, there is no weight loss, so hopefully there is nothing else going on. DT: 09:30:50 TT: 11:06:00 Ref: [id number] - TID: [id number] [facility]
--- NOTE | 2025-01-13 12:06 | PC.SS ---
Patient is an 84 year old female presenting to the hospital for UTI, failed up patient therapy. CLAY MINE CUTTING MACHINE OPERATOR conducted face to face contact with patient at bedside. CLAY MINE CUTTING MACHINE OPERATOR informed patient role and reason for visit. Patient confirmed demographic information and stated she lives with . Patient is retired, does not use DME at home, PCP is Dr. Venegas at [facility]. Her last appointment was in June 2024. Patient would like to d/c home once she is medically cleared. Patient stated will provide transportation. D/C: home PCP: Dr. Venegas Next of kin: Bj Maximo [phone]
--- NOTE | 2025-01-13 14:57 | PC.SS ---
Rounding note: pending urine culture, d/c home
--- NOTE | 2025-01-13 18:30 | PC.NURSE ---
[facility] papers were fax and received from pt's clinic [id number], and put into pt chart
[2025-01-14] VITALS: BP 143/84; PULSE 80; RESP 18; TEMP 36.4; O2SAT 95
[2025-01-14 04:00] VITALS: BP 132/66; PULSE 75; RESP 18; TEMP 36.7; O2SAT 95
[2025-01-14 06:32] LABS: Basophils # (Auto) 0.1 Thou/mm3 (0.0-0.2); Basophils % (Auto) 1 % (0-2.5); Eosinophils # (Auto) 0.4 Thou/mm3 (0.0-0.5); Eosinophils % (Auto) 6 % (0-10); Hematocrit 37.3 % (36.0-46.0); Hemoglobin 12.3 g/dL (12.0-16.0); Immature Granulocytes Auto 0.02 Thou/mm3 (0.00-0.00); Lymphocytes # (Auto) 1.6 Thou/mm3 (1.0-4.8); Lymphocytes % (Auto) 23 % (10-50); Mean Corpuscular HGB Conc 33.0 g/dl (31.0-37.0); Mean Corpuscular Hemoglobin 27.7 pg (25.0-35.0); Mean Corpuscular Volume 84 fL (80-100); Monocytes # (Auto) 0.9 Thou/mm3 (0.0-0.8); Monocytes % (Auto) 13 % (0-12); Neutrophils # (Auto) 4.0 Thou/mm3 (1.8-7.7); Neutrophils % (Auto) 57 % (37-80); Nucleated Red Blood Cell # 0.00 Thou/mm3 (0.00-0.00); Nucleated Red Blood Cell % 0 /100 WBC (0); Platelet Count 218 Thou/mm3 (140-440); RDW Standard Deviation 40.9 fL (36.4-46.3); Red Blood Count 4.44 Miln/mm3 (4.00-5.20); White Blood Count 6.9 Thou/mm3 (3.6-11.0)
[2025-01-14 07:02] LABS: Anion Gap 11 (7-16); BUN/Creatinine Ratio 10 Ratio (12-20); Blood Urea Nitrogen 9 mg/dL (9-23); Calcium 8.7 mg/dL (8.3-10.6); Carbon Dioxide 22.4 mMol/L (20.0-31.0); Chloride 105 mMol/L (98-107); Creatinine (Component) 0.9 mg/dL (0.6-1.3); Estimated Creatinine Clearance 47.2 mL/min (>60); Glucose 91 mg/dL (74-106); Magnesium 1.5 mg/dL (1.6-2.6); Osmolality,Calculated 274 (275-295); Phosphorous 2.9 mg/dL (2.4-5.1); Potassium 4.3 mMol/L (3.4-5.1); Sodium 138 mMol/L (136-145); eGFR > 60 See Note
[2025-01-14 07:34] LABS: Hepatitis C Antibody Non Reactive (Non React)
--- NOTE | 2025-01-14 07:59 | ESPR_ITS ---
<Statement entered by Damian Read MD - 01/14/25 14:54> Patient was examined and case was reviewed with team including attending physician. Note reviewed, I agree with most of its contents and agree with the patient's care as documented by MS Tejinder Gottlieb Case discussed with my attending Dr. Vangie Read MD PGY-2 Disclaimer: Despite multiple revisions, due to the dictation software being used, the document bellow may not be free of grammatical errors including phonetic/typographic errors. However, this does not deter from our commitment to providing health care in the patient's best interest in mind. Documentation for date of: 01/14/25 Subjective Subjective Interval history: Pt was seen at bedside today. Pt is alert and oriented x4. Pt states that she feels fine and no longer has any symptoms that brought her to the emergency department. She states that she denies having burning with urination, increased urinary frequency, or increased urinary urgency. Pt was notified about her results of her previous urine culture and states that she would like to leave today. Pt does not have any further questions or concerns. Exam Vital Signs Temp Pulse Resp BP Pulse Ox O2 Del Method 98.0 F 75 18 132/66 H 95 Room Air 01/14/25 04:00 01/14/25 04:00 01/14/25 04:00 01/14/25 04:00 01/14/25 04:00 01/14/25 04:00 Narrative Exam General: No acute distress, well nourished Eye: PERRL, EOMI, normal conjunctiva, no scleral icterus HENT: Normocephalic, atraumatic, normal hearing, moist oral mucosa Neck: Supple, non-tender, no JVD, no lymphadenopathy Lungs: Clear to auscultation bilaterally, non-labored respirations, symmetric chest rise, no use of accessory muscles Heart: Normal S1 and S2, no S3 or S4 appreciated. Normal rate and regular rhythm, no murmurs, rubs gallops, or edema. Peripheral pulses intact bilaterally, capillary refill brisk distally Abdomen: Soft, non-tender, non-distended, normal bowel sounds. No guarding or rebound tenderness. Musculoskeletal: Normal range of motion and strength, no tenderness or swelling Skin: Skin is warm, dry, no rashes or lesions. Neurologic: Alert, awake and oriented x3. CN II-XII grossly intact. No focal neuro deficits. No signs of meningeal irritation noted. Psychiatric: Cooperative, appropriate mood and affect Objective Objective Narrative Objective Narrative: pt is alert and oriented x4. pt has clear breath sounds bilaterally and cardiac exam yields regular rate and rhythm w/o murmur. Abdomen is soft and nontender. Bowel sounds are present in all 4 quadrants. Both LE and UE exam is unremarkable. Retroperitoneal ultrasound completed on 01/13 shows small kidneys bilaterally with cortical thinning and mild bilateral renal parenchymal scar formation. Labs 01/14/25 06:06 01/14/25 06:06 Labs: Laboratory Results - last 24 hr 01/14/25 06:06 WBC 6.9 RBC 4.44 Hgb 12.3 Hct 37.3 MCV 84 MCH 27.7 MCHC 33.0 RDW Std Deviation 40.9 Plt Count 218 Neut % (Auto) 57 Lymph % (Auto) 23 [place] % (Auto) 13 H Eos % (Auto) 6 Baso % (Auto) 1 Neut # (Auto) 4.0 Lymph # (Auto) 1.6 [place] # (Auto) 0.9 H Eos # (Auto) 0.4 Baso # (Auto) 0.1 Immature Gran # (Auto) 0.02 H Absolute Nucleated RBC 0.00 Immature Gran % 0 Nucleated RBC % 0 Sodium 138 Potassium 4.3 D Chloride 105 Carbon Dioxide 22.4 Anion Gap 11 BUN 9 Creatinine 0.9 Estim Creat Clear Calc 47.2 L eGFR > 60 BUN/Creatinine Ratio 10 L Glucose 91 Calculated Osmolality 274 L Calcium 8.7 Phosphorus 2.9 Magnesium 1.5 L Hepatitis C Antibody Non Reactive Quality Measures Quality Measures VTE prophylaxis Advance care planning discussed with:: patient Assessment & Plan Assessment Current Active Medications: Generic Name Dose Route Start Last Admin Trade Name Freq PRN Reason Stop Dose Admin Acetaminophen 650 mg 01/11/25 21:25 Acetaminophen 325 Mg Tablet PO 02/10/25 21:24 Q6H PRN Fever >100.4 or pain Docusate Sodium 100 mg 01/11/25 21:25 Docusate Sod 100 Mg Capsule PO 02/10/25 21:24 QDAY PRN CONSTIPATION Protocol Enoxaparin Sodium 40 mg 01/12/25 09:00 01/13/25 09:11 Enoxaparin Sod Inj 40 Mg/0.4 Ml Syringe SC 01/26/25 08:59 Not Given QDAY [facility] Ceftriaxone Sodium/Dextrose 1 gm in 50 mls @ 100 mls/hr 01/13/25 09:01 01/13/25 09:10 Rocephin/D5w 1gm Iv Premix IV 01/20/25 09:00 100 mls/hr QDAY SHON Administration Lisinopril 10 mg 01/13/25 11:45 01/13/25 13:17 Lisinopril 2.5 Mg Tablet PO 02/12/25 11:44 Not Given QDAY SHON Ondansetron HCl 4 mg 01/11/25 21:25 Ondansetron Inj 2 Mg/Ml Inj 2 Ml IVP 02/10/25 21:24 Q6H PRN NAUSEA OR VOMITING Protocol Phenazopyridine HCl 100 mg 01/12/25 16:44 Phenazopyridine Hcl 100 Mg Tablet PO 01/14/25 16:43 TIDWM PRN dysuria Sennosides 1 tab 01/11/25 21:25 Senna Tablet PO 02/10/25 21:24 QDAY PRN constipation Protocol Plan #UTI with failure of outpatient antibiotics Patient has had symptoms of UTI for 3 weeks, dysuria and urinary urgency. Completed a course of Keflex x1 wk and a course of Augmentin x 1wk without relief. Per ED, outpatient urine culture grew Klebsiella and Pseudomonas. Sensitivities unknown, however ED started patient on meropenem, possible ESBL. Pt's PCP has sent over pt's previous urine culture results completed on 12/03 which grew both Klebsiella and Pseudomonas. Urine culture done on 01/11 shows growth of Klebsiella sensitive to Ceftriaxone. - urine culture taken on 01/11 shows growth of Klebsiella. Blood culture shows no growth at 48 hours x2 - Rocephin 1g IV QDAY (01/13- ) - Encourage oral hydration #Hypertension Most recent BP was 127/64. Continue to monitor blood pressure Plan: - Continue lisinopril 10 mg PO daily - Continue Home Med of HCTZ 25 mg PO QDAY Attending Provider Attestation/Addendum Radha, Suri Vences DO, attest that I was physically present for the malagon portions of the service and evaluated the patient with the resident and I reviewed and discussed the case with the resident and agree with the resident's findings and plans of care as documented above
[2025-01-14 08:00] VITALS: BP 127/64; PULSE 71; RESP 17; TEMP 36.3; O2SAT 95
[2025-01-14] MEDS: cefTRIAXone/D5w 1gm IV premix 1 GM/50 ML BAG IV (08:11)
[2025-01-14 08:12] VITALS: BP 127/64; PULSE 71
[2025-01-14] MEDS: ENOXAPARIN SOD INJ 40 MG/0.4 ML SYRINGE SC (08:13)
[2025-01-14] MEDS: MAGNESIUM OXIDE 400 MG TABLET PO ×2 (08:41→10:20)
[2025-01-14] MEDS: FOSFOMYCIN PWD 3 GM PACKET (NON-FORMULARY) PO (10:20)
[2025-01-14 12:00] VITALS: BP 111/68; PULSE 83; RESP 17; TEMP 36.2; O2SAT 98
--- NOTE | 2025-01-14 13:20 | ESDS_ITS ---
<Statement entered by Suri Vences DO - 01/14/25 15:14> I, Suri Vences DO, attest that I was physically present for the malagon portions of the service and evaluated the patient with the resident and I reviewed and discussed the case with the resident and agree with the resident's findings and plans of care as documented above <Statement entered by Damian Read MD - 01/14/25 14:45> Patient was examined and case was reviewed with team including attending physician. Note reviewed, I agree with most of its contents and agree with the patient's care as documented by Tejinder Read MD PGY-2 Planned Discharge Date 01/14/25 DS: Providers Provider Date of admission: 01/11/25 21:26 Primary care physician: Physician Joan Primary/Family Admitting Provider: Mitch Palafox MD Attending Provider on Admission: Suri Vences DO Consults: 01/12/25 10:54 Consult to Infectious Diseases Routine Comment: Consulting Provider: Ibrahima Boogie Attending Provider on DC: Suri Vences DO Discharging Provider: Tejinder Gottlieb MedStudent Damian Read MD Anticipated date of discharge: 01/14/25 DS: Diagnosis Problem List Completed Was Problem List Reviewed/Reconciled?: Yes Hospital Course Hospital Course Hospital course: 84 y/o F with PMHx significant for hypertension presented with chief complaint of persistent urinary symptoms. Patient had a UTI and failed outpatient antibiotic therapy and was admitted for UTI requiring IV antibiotics. Per ED, patient's urine culture from PCP was growing Klebsiella and Pseudomonas, unknown sensitivities. ED started the patient on meropenem. Pt continued recieving Meropenem until antibiotic therapy was switched to IV Rocephin on 01/13 per Infectious Disease recommendations. Pt continued receiving IV Rocephin until discharge on 01/14. Pt's urine culture done on 01/11 resulted in growth of Klebsiella, mirroring that with culture recieved from PCP Cedric's office. Culture obtained from Dr. Steele's office also noted growth of Pseudomonas. Prior to discharge, pt received formulation of oral Fosformycin to cover for Pseudomonas. Patient has completed IV regimen for Klebsiella simple cystitis. Pt also recieved lisinopril 10mg to ensure control of blood pressure inpatient. HCTZ was discontinued as patient has been normotensive and increased risk of hyponatremia. Pt is medically stable at time of discharge. Problem List: #UTI with failure of outpatient antibiotics #Hypertension Case discussed with my senior Dr. Willson and my attending Dr. Vangie Gottlieb, MS Status at Discharge Cognitive/behavioral status at discharge: Pt is alert and oriented x4. Pt is able to ambulate independently Time Spent with Patient Time attestation: Total time spent providing and/or coordinating discharge services: Time spent: Greater than 30 minutes Exam Vital Signs Temp Pulse Resp BP Pulse Ox O2 Del Method 97.4 F 71 17 127/64 95 Room Air 01/14/25 08:00 01/14/25 08:12 01/14/25 08:00 01/14/25 08:12 01/14/25 08:00 01/14/25 08:00 Narrative Exam Physical Exam GENERAL: NAD, AAOx3 HEENT: Moist mucosa. Eyes open, symmetrical, & clear CARDIO: Heart RRR, no obvious murmurs PULM: No noted coughing/dyspnea CTA B/L, no R/W/R GI: Abdomen soft, nondistended, no pain on palpation. BSx4 SKIN/MSK/EXT: No wounds/rashes/edema/amputations, no pain on palpation. Pedal pulses present B/L NEURO: AAOx3, no focal neuro deficits, able to move all 4 extremities Discharge Plan Plan Patient Disposition: HOME (Self Care) Care Plan Goals: Follow up with primary care physician within 1 week of discharge Please talk to your primary care physician about discontinuing HCTZ Should your symptoms recur or worsen patient is instructed return to the ED. Prescriptions/Referrals Prescriptions/Med Rec: Continued lisinopril 10 mg tablet 10 mg PO QDAY Held hydrochlorothiazide 25 mg tablet 25 mg PO QDAY Hold Instructions: Resume on 01/21/25. Referrals: No Primary/Family,Physician [Primary Care Provider] - Patient/Caregiver Discharge Instructions Education Materials: Anatomy of the Female Urinary Tract, Urinary Tract Infections in Women Print Language: Turkmen Stand Alone Forms: Jeanne Award Info., Patient Portal Info Letter Discharge Order Discharge Orders: Discharge (Routine); Ordered 01/14/25 Ordered By: Damian Read Quality Discharge Quality Measures none
== END 2025-01-14 13:25 | disposition home or self-care (01) | DRG 690 ==
LOC: SERX 21:17 → SERHOLD 21:43 → S3NX 01-13 06:17
PROVIDERS: Internal Medicine Infectious Disease; Nurse Practitioner Family; Nurse Practitioner Primary Care; Admitting Provider Student in an Organized Health Care Education/Training Program; Emergency Provider Emergency Medicine; Visit Provider Internal Medicine
DX: N30.90 Cystitis, unspecified without hematuria (principal); I10 Essential (primary) hypertension; B96.1 Klebsiella pneumoniae [K. pneumoniae] as the cause of diseases classified elsewhere; B96.5 Pseudomonas (aeruginosa) (mallei) (pseudomallei) as the cause of diseases classified elsewhere; Z79.899 Other long term (current) drug therapy; Z87.440 Personal history of urinary (tract) infections; Z88.2 Allergy status to sulfonamides
CPT/HCPCS: 36415; 76770; 80048; 80053; 80061; 81001; 83605; 83735; 84100; 85025; 86803; 87040; 87077; 87086; 87186; 96365; 96366; 99284; J0696; J1650; J2185; J7030; J7050; J7999; A9270

== ENCOUNTER 2025-02-10 13:13 | Emergency (ER) | payer MEDICARE, SELFPAY ==
--- NOTE | 2025-02-10 13:28 | EKG_ITS ---
[facility] Test Date: 2025-02-10 Pat Name: KARRIE HAGEN Department: Room: - Gender: Female Day Care Aide: : 1940 Requested By: Syed Clifton Order Number: [id number] Reading MD: Syed Clifton Measurements Intervals [place] Rate: 74 P: 69 RI: 188 QRS: -17 QRSD: 82 T: 43 QT: 383 QTc: 427 Interpretive Statements SINUS RHYTHM Compared to ECG 05/29/2023 22:10:55 No significant changes /store/S0/[id number]
[2025-02-10 13:29] VITALS: BMI 25.4
--- NOTE | 2025-02-10 13:29 | PD.EDADULT ---
ED General RME/HPI General Chief complaint: Syncope / Near Syncope Stated complaint: NEAR SYNCOPE Time Seen by Provider: 02/10/25 13:28 Arrival date/time: 02/10/25 13:13 CC: Lightheadedness dizziness HPI abrupt onset approximately 40 minutes ago lasting 45 minutes no prior history of similar events denies loss of consciousness altered level of consciousness denies nausea vomiting chest pain or difficulty breathing. Patient denies any unusual activities prior to this event. Patient is on lisinopril and hydrochlorothiazide for daily medications. Patient currently states she is mildly lightheaded and dizzy when she sits up in the bed. Patient is awake alert oriented nontoxic-appearing not in any acute distress. Related Data Home Medications ?Medication ?Instructions ?Recorded ?Confirmed hydrochlorothiazide 25 mg tablet 25 mg PO QDAY 01/12/25 01/12/25 Held on 01/14/25. Instructions: Resume on 01/21/25. lisinopril 10 mg tablet 10 mg PO QDAY 01/12/25 01/12/25 Allergies Allergy/AdvReac Type Severity Reaction Status Date / Time Sulfa (Sulfonamide Allergy Verified 01/11/25 14:09 Antibiotics) Review of Systems Review of Systems Narrative Review of Systems: GEN: No fever, no chills, no weight loss EYES: No discharge, no visual changes, no pain HEENT: No ear pain, no congestion, no sore throat PULM: No shortness of breath, no cough, no congestion CV: No chest pain, no dyspnea on exertion, no palpitations GI: No nausea, no vomiting, no diarrhea, no pain, no constipation : No frequency, no urgency, no dysuria MUSC/SKEL: No joint pain, no back pain SKIN: No rash PSYCH: No hallucinations, no depression HEME/LYMPH: No easy bleeding or bruising tendencies NEURO: No weakness, no headache, +Dizziness Past Medical History Past Medical History NEUROLOGIC: Negative Neurological Disorders CARDIAC: Positive Cardiac Disorders, Edema and Hypertension; Negative Congestive Heart Failure RESPIRATORY: Negative Chronic Obstructive Pulmonary Disease (COPD) GASTROINTESTINAL: Negative Gastrointestinal Disorders GENITOURINARY: Negative Genitourinary Disorders or Renal Disease REPRODUCTIVE: Negative Pelvic Inflammatory Disease MUSCULOSKELETAL: Negative Musculoskeletal Disorders ENDOCRINE: Negative Endocrine Disorders, Diabetes Mellitus Type 1 or Diabetes Mellitus Type 2 HEMATOLOGIC: Negative Blood Disorders Social History SMOKING STATUS: Never smoker ED Exam Narrative Physical exam: [General: Not in any acute distress Head normocephalic HEENT: Eyes pupils are PERRLA EOMs are intact no nystagmus vertical or horizontal, mouth pink moist membranes uvula is midline swallow symmetrical phonation is normal nose no rhinorrhea or otorrhea all of the subsystems of HEENT are within acceptable limits Neck is supple nontender no JVD no edema Chest equal chest rise nontender to palpation Respiratory: Clear to auscultation no wheezes crackles or rubs CV: Rate rhythm is regular no murmurs rubs or clicks Abdomen is soft nontender no masses positive bowel sounds all 4 quadrants Back: No CVA tenderness no spinous process tenderness from cervical spine thoracic and lumbar spine Skin: Intact no petechiae rash induration ulceration or crepitus Extremities: Moving all extremity against resistance cap refill less than 2 seconds neurosensory intact. No lower extremity edema. Neuro: Awake alert oriented x3 Glascow coma 15 no focal deficits] Course Quality Measures none Orders Category Date Time Status EKG (ED ONLY) *Do not use* NOW Care 02/10/25 13:28 Completed Orthostatic Vitals NOW Care 02/10/25 13:28 Active EKG (ED Only) Stat Exams 02/10/25 13:28 Draft B-Type Natriuretic Peptide Stat Lab 02/10/25 14:24 Completed CBC Stat Lab 02/10/25 14:24 Completed Comprehensive Metabolic Panel Stat Lab 02/10/25 14:24 Completed Drug Screen,Urine Stat Lab 02/10/25 15:00 Received LDH (Lactate Dehydrogenase) Stat Lab 02/10/25 14:24 Completed Magnesium Stat Lab 02/10/25 14:24 Completed Partial Thromboplastin Time Stat Lab 02/10/25 14:24 Completed Prothrombin Time with INR Stat Lab 02/10/25 14:24 Completed Troponin I Stat Lab 02/10/25 14:24 Completed Urinalysis, C/S if Indicated Stat Lab 02/10/25 15:00 Completed Sodium Chloride 0.9% 500 ml [Ns] 500 ml Med 02/10/25 13:29 Discontinued IV 999 mls/hr Vital Signs Vital signs: Vital Signs Temperature 98.0 F 02/10/25 13:34 Pulse Rate 71 02/10/25 13:34 Respiratory Rate 16 02/10/25 13:34 Blood Pressure 154/88 H 02/10/25 13:34 Pulse Oximetry (%) 98 02/10/25 13:34 Oxygen Delivery Method Room Air 02/10/25 13:34 Discharge Plan Plan Patient Disposition: HOME (Self Care) Patient condition on transfer: Stable Prescriptions/Referrals Prescriptions/Med Rec: No Action lisinopril 10 mg tablet 10 mg PO QDAY hydrochlorothiazide 25 mg tablet 25 mg PO QDAY Referrals: Ajay Read MD [Physician, Family Practice] - In 1 week No Primary/Family,Physician [Primary Care Provider] - In 1 week Problem List Clinical Impression: Near syncope Patient/Caregiver Discharge Instructions Education Materials: ED Near-Fainting, Uncertain Cause Print Language: Ecuadorean Stand Alone Forms: [email or web address] Award Info., Work/School Release, Patient Portal Info Letter YURI/CLARK Supervising Physician PA/CLARK Supervising Physician: Syed Rooney ENP [facility] Clinical Information Provided by patient and EMS Medical Records Reviewed [facility] and EMS Meds/Rx Considered, not Ordered None Labs/Rad/Tests considered, not Ordered None Chronic Illness/Social Conditions Add or document further as needed: Hypertension EKG EKG Interpretation narrative: EKG performed at 1329 shows a ventricular rate of 74 FL interval 188 QRS of 82 QTc of 411 is normal sinus rhythm. Lab Interpretation Labs: interpreted by tn Lab(s) interpretation(s): Coags within acceptable limits CMP shows sodium 134 no other significant electrolyte imbalances renal impairment transaminitis or T. bili elevation. CBC shows no acute leukocytosis anemia thrombocytopenia Troponins unremarkable BMP is unremarkable Urine is negative for UTI. UDS is negative. Imaging Radiology reports / interpretation(s): No acute finding orthostatics are negative I suspect this is an early syncopal episode the patient is advised to follow-up with her primary care provider. Patient be discharged home with a near syncope Medication Administration(s) Medication Administration History Discontinued Medications Sodium Chloride (Ns) 500 mls @ 999 mls/hr IV .Q31M ONE Stop: 02/10/25 13:59 Last Infusion: 02/10/25 14:39 Dose: Infused Documented By: Admin: 02/10/25 13:47 Dose: 999 mls/hr Documented By: JOSE
[2025-02-10 13:34] VITALS: BP 154/88; PULSE 71; RESP 16; TEMP 36.7; O2SAT 98
[2025-02-10 13:39] VITALS: BP 120/77; BP 138/66; BP 140/67; PULSE 67; PULSE 78
[2025-02-10] MEDS: SODIUM CHLORIDE 0.9% 500 ML 500 ML 999 ML IV (13:47)
[2025-02-10 14:32] LABS: Basophils # (Auto) 0.0 Thou/mm3 (0.0-0.2); Basophils % (Auto) 1 % (0-2.5); Eosinophils # (Auto) 0.2 Thou/mm3 (0.0-0.5); Eosinophils % (Auto) 3 % (0-10); Hematocrit 36.4 % (36.0-46.0); Hemoglobin 12.1 g/dL (12.0-16.0); Immature Granulocytes Auto 0.03 Thou/mm3 (0.00-0.00); Lymphocytes # (Auto) 1.2 Thou/mm3 (1.0-4.8); Lymphocytes % (Auto) 16 % (10-50); Mean Corpuscular HGB Conc 33.2 g/dl (31.0-37.0); Mean Corpuscular Hemoglobin 27.3 pg (25.0-35.0); Mean Corpuscular Volume 82 fL (80-100); Monocytes # (Auto) 0.8 Thou/mm3 (0.0-0.8); Monocytes % (Auto) 11 % (0-12); Neutrophils # (Auto) 5.0 Thou/mm3 (1.8-7.7); Neutrophils % (Auto) 69 % (37-80); Nucleated Red Blood Cell # 0.00 Thou/mm3 (0.00-0.00); Nucleated Red Blood Cell % 0 /100 WBC (0); Platelet Count 202 Thou/mm3 (140-440); RDW Standard Deviation 39.1 fL (36.4-46.3); Red Blood Count 4.43 Miln/mm3 (4.00-5.20); White Blood Count 7.2 Thou/mm3 (3.6-11.0)
[2025-02-10 14:50] LABS: INR 1.0 (0.9-1.3); Partial Thromboplastin Time 21.4 Seconds (22.0-36.0); Prothrombin Time 11.2 Seconds (9.0-12.2)
[2025-02-10 14:52] LABS: B-Type Natriuretic Peptide 62 pg/mL (0-100)
[2025-02-10 14:57] LABS: Alanine Aminotransferase 12 U/L (10-49); Albumin, Serum 3.9 gm/dL (3.4-4.8); Albumin/Globulin Ratio 1.8 (1.2-2.2); Alkaline Phosphatase 50 U/L (46-116); Anion Gap 11 (7-16); Aspartate Amino Transferase 18 U/L (0-34); BUN/Creatinine Ratio 17 Ratio (12-20); Bilirubin,Total 0.4 mg/dL (0.3-1.2); Blood Urea Nitrogen 15 mg/dL (9-23); Calcium 9.3 mg/dL (8.3-10.6); Calcium (Corrected) 9.4 mg/dL (8.5-10.1); Carbon Dioxide 23.7 mMol/L (20.0-31.0); Chloride 99 mMol/L (98-107); Creatinine (Component) 0.9 mg/dL (0.6-1.3); Estimated Creatinine Clearance 47.2 mL/min (>60); Globulin 2.2 gm/dL (2.3-3.5); Glucose 84 mg/dL (74-106); LDH (Lactate Dehydrogenase) 139 U/L (120-246); Magnesium 1.9 mg/dL (1.6-2.6); Osmolality,Calculated 268 (275-295); Potassium 4.2 mMol/L (3.4-5.1); Sodium 134 mMol/L (136-145); Total Protein 6.1 gm/dL (5.7-8.2); Troponin I < 0.020 ng/mL (0.0-0.045); eGFR > 60 See Note
[2025-02-10 15:09] LABS: Collection Type, Urine Clean Catch
[2025-02-10 15:25] LABS: Bilirubin,Urine Negative (Negative); Blood,Urine Negative (Negative); Clarity,Urine Clear (Clear/Hazy); Color,Urine Lt-Yellow (Lt Yel-Yel); Culture Indicated,Urine Not Indicated; Glucose, Urine Negative (Negative); Hyaline Casts,Urine < 1 /hpf (0-1); Ketones,Urine Negative (Negative); Leukocyte Esterase,Urine Negative (Negative); Nitrite,Urine Negative (Negative); PH,Urine 7.0 (5.0-7.0); Protein,Urine Negative (Neg - Trace); RBC,Urine 1 /hpf (0-3); Specific Gravity,Urine 1.012 (1.001-1.035); Squamous Epithelial Cell,Urine < 1 /hpf (0-5); Urobilinogen,Urine Negative mg/dL (0.0-1.0); WBC,Urine 1 /hpf (0-5)
[2025-02-10 15:38] VITALS: BP 147/69; PULSE 72; RESP 14; TEMP 36.8; O2SAT 95
[2025-02-10 15:40] LABS: Amphetamine/Methamp Scrn,U Negative (Negative); Barbiturate Screen,Urine Negative (Negative); Benzodiazepines Screen,Urine Negative (Negative); Benzoylecgonine Screen, Ur Negative (Negative); Fentanyl Screen,Urine Negative (Negative); Opiate Screen,Urine Negative (Negative); THC Screen,Urine Negative (Negative)
--- NOTE | 2025-02-10 15:42 | PC.NURSE ---
PT AMBULATED AROUND ROOM WITH STEADY GAIT INDEPENDENTLY. DALIA PEREZ NP MADE AWARE.
== END 2025-02-10 15:54 | disposition home or self-care (01) ==
PROVIDERS: Registered Nurse General Practice; Emergency Provider Emergency Medicine
DX: R55 Syncope and collapse (principal); R42 Dizziness and giddiness
CPT/HCPCS: 36415; 80053; 80307; 81001; 83615; 83735; 83880; 84484; 85025; 85610; 85730; 93005; 96360; 99283; J7999